=== PATIENT | male | born 2000 | race Hispanic/Latino ===

== ENCOUNTER 2021-01-30 18:30 | Emergency (ER) | payer SELFPAY ==
--- NOTE | 2021-01-30 20:02 | EDPHYS ---
Physician Documentation [facility] Name: Ede Bey Age: 20 yrs Sex: Male : 2000 Arrival Date: 01/30/2021 Time: 18:34 Bed 12 Private MD: ED Physician Sanjiv Gonsalez HPI: 01/30 19:57 This 20 yrs old Male presents to ER via Ambulatory with complaints of Arm sp3 Injury. 19:57 20-year-old male with no significant past medical history presents with left elbow pain sp3 secondary to a blunt injury he sustained yesterday where he ran into a cabinet and then subsequently fell on the ground. Patient complains of predominantly left distal elbow pain with no numbness tingling distally with normal pulse and sensation in his hand. Patient "tried to walk it off" yesterday but since the pain continued today he presents to the ED. No other secondary injuries noted at this time.. Historical: - Allergies: 19:04 No Known Allergies; aa5 - PMHx: 19:04 None; aa5 - PSHx: 19:04 None; aa5 - Immunization history:: Client reports having NOT received the Covid vaccine. - Social history:: Smoking status: Patient denies any tobacco usage or history of. ROS: 19:58 Constitutional: Negative for fever, chills, and weight loss, Eyes: Negative for injury, sp3 pain, redness, and discharge, ENT: Negative for injury, pain, and discharge, Neck: Negative for injury, pain, and swelling, Cardiovascular: Negative for chest pain, palpitations, and edema, Respiratory: Negative for shortness of breath, cough, wheezing, and pleuritic chest pain, Abdomen/GI: Negative for abdominal pain, nausea, vomiting, diarrhea, and constipation, Back: Negative for injury and pain, Skin: Negative for injury, rash, and discoloration, Neuro: Negative for headache, weakness, numbness, tingling, and seizure, Psych: Negative for depression, anxiety, suicide ideation, homicidal ideation, and hallucinations, Allergy/Immunology: Negative for hives, rash, and allergies, Endocrine: Negative for neck swelling, polydipsia, polyuria, polyphagia, and marked weight changes. 19:58 All other systems are negative. Exam: 19:58 Constitutional: This is a well developed, well nourished patient who is awake, alert, sp3 and in no acute distress. Head/Face: Normocephalic, atraumatic. Neck: Trachea midline, no thyromegaly or masses palpated, and no cervical lymphadenopathy. Supple, full range of motion without nuchal rigidity, or vertebral point tenderness. No Meningismus. Chest/axilla: Normal chest wall appearance and motion. Nontender with no deformity. No lesions are appreciated. Cardiovascular: Regular rate and rhythm with a normal S1 and S2. No gallops, murmurs, or rubs. Normal PMI, no JVD. No pulse deficits. Respiratory: Lungs have equal breath sounds bilaterally, clear to auscultation and percussion. No rales, rhonchi or wheezes noted. No increased work of breathing, no retractions or nasal flaring. Abdomen/GI: Soft, non-tender, with normal bowel sounds. No distension or tympany. No guarding or rebound. No evidence of tenderness throughout. Back: No spinal tenderness. No costovertebral tenderness. Full range of motion. Skin: Warm, dry with normal turgor. Normal color with no rashes, no lesions, and no evidence of cellulitis. Neuro: Awake and alert, GCS 15, oriented to person, place, time, and situation. Cranial nerves II-XII grossly intact. Motor strength 5/5 in all extremities. Sensory grossly intact. Cerebellar exam normal. Normal gait. Psych: Awake, alert, with orientation to person, place and time. Behavior, mood, and affect are within normal limits. 19:58 Musculoskeletal/extremity: Small effusion to the elbow with limited range of motion secondary to pain. Pronation and supination are also limited secondary to pain. Wrist as a normal exam. Radial pulses normal. There is no pain in the anatomical snuffbox and capillary refill is normal.. Vital Signs: 19:02 BP 104 / 82; Pulse 76; Resp 18 S; Temp 99.0(TE); Pulse Ox 100% on R/A; Weight 104.33 kg aa5 (R); Height 6 ft. 0 in. (182.88 cm) (R); 19:46 BP 128 / 79; Pulse 76; Resp 16; Temp 98.5(O); Pulse Ox 100% on R/A; Pain 4/10; fu 19:02 Body Mass Index 31.19 (104.33 kg, 182.88 cm) aa5 MDM: 19:47 Patient medically screened. sp3 19:59 Data reviewed: vital signs, nurses notes. ED course: X-ray demonstrates elbow effusion sp3 consistent with radial head fracture with anterior sail sign and posterior fat pad noted on x-ray. Will place patient in a splint and a sling and have him follow-up with orthopedics for definitive immobilization. Discharged on diclofenac p.o. as needed as needed for pain. 01/30 19:04 Order name: Elbow Left 3 View XRAY aa5 01/30 19:57 Order name: Splint - Elbow; Complete Time: 20:36 sp3 01/30 19:57 Order name: Sling; Complete Time: 20:36 sp3 Administered Medications: No medications were administered Disposition Summary: 01/30/21 20:01 Discharge Ordered Location: Home sp3 Condition: Stable sp3 Diagnosis - Nondisplaced fracture of head of left radius, initial encounter for closed fracture sp3 Followup: sp3 - With: Luke Murphy MD - When: Upon discharge from the Emergency Department - Reason: Continuance of care Discharge Instructions: - Discharge Summary Sheet sp3 - Radial Head Fracture sp3 - Anterior and Posterior Colporrhaphy and Sling Procedure sp3 Forms: - Medication Reconciliation Form sp3 - Work release form fu - Thank You Letter sp3 - Antibiotic Education sp3 - Prescription Opioid Use sp3 Prescriptions: - Diclofenac Sodium 75 mg Oral Tablet Sustained Release - take 1 tablet by ORAL route 2 times per day; 30 tablet; Refills: 0, Product sp3 Selection Permitted Signatures: Dispatcher [employer] Susanna Coulter RN RN aa5 Sanjiv Gonsalez MD MD sp3 Corrections: (The following items were deleted from the chart) 20: 19:37 Elbow Left 3 View+RAD.RAD.BRZ ordered. EDMS QUINN
--- NOTE | 2021-01-30 20:02 | ER ---
Nurse's Notes [facility] Name: Ede Bey Age: 20 yrs Sex: Male : 2000 Arrival Date: 01/30/2021 Time: 18:34 Bed 12 Private MD: Diagnosis: Nondisplaced fracture of head of left radius, initial encounter for closed fracture Presentation: 01/30 19:02 Chief complaint: Patient states: tripped and fell onto left arm last night. Pt c/o pain aa5 to left elbow. Coronavirus screen: At this time, the client does not indicate any symptoms associated with coronavirus-19. Ebola Screen: No symptoms or risks identified at this time. Initial Sepsis Screen: Does the patient meet any 2 criteria? No. Patient's initial sepsis screen is negative. Does the patient have a suspected source of infection? No. Patient's initial sepsis screen is negative. Risk Assessment: Do you want to hurt yourself or someone else? Patient reports no desire to harm self or others. Onset of symptoms was January 2021. 19:02 Acuity: JOSIE 4 aa5 19:02 Method Of Arrival: Ambulatory aa5 Historical: - Allergies: 19:04 No Known Allergies; aa5 - PMHx: 19:04 None; aa5 - PSHx: 19:04 None; aa5 - Immunization history:: Client reports having NOT received the Covid vaccine. - Social history:: Smoking status: Patient denies any tobacco usage or history of. Screenin:39 Abuse screen: Denies threats or abuse. Nutritional screening: No deficits noted. fu Tuberculosis screening: No symptoms or risk factors identified. Fall Risk None identified. Assessment: 19:36 General: Appears in no apparent distress. Behavior is calm, cooperative, appropriate fu for age, Denies fever, feeling ill, fatigue, chills. Pain: Complains of pain in left arm Pain does not radiate. Pain currently is 4 out of 10 on a pain scale. Pain began 1 day ago. Aggravated by movement. Neuro: Level of Consciousness is awake, alert, obeys commands, Oriented to person, place, time, situation, [employer] Person are weak on left Gait is steady, Speech is normal, Facial symmetry appears normal. Cardiovascular: No deficits noted. Respiratory: No deficits noted. GI: No deficits noted. : No deficits noted. Musculoskeletal: Range of motion: limited in left arm Reports pain in left arm Pain is 4 out of 10 on a pain scale. 20:29 Reassessment: Patient and/or family updated on plan of care and expected duration. Pain fu level reassessed. Patient is alert, oriented x 3, equal unlabored respirations, skin warm/dry/pink. Vital Signs: 19:02 BP 104 / 82; Pulse 76; Resp 18 S; Temp 99.0(TE); Pulse Ox 100% on R/A; Weight 104.33 kg aa5 (R); Height 6 ft. 0 in. (182.88 cm) (R); 19:46 BP 128 / 79; Pulse 76; Resp 16; Temp 98.5(O); Pulse Ox 100% on R/A; Pain 4/10; fu 19:02 Body Mass Index 31.19 (104.33 kg, 182.88 cm) aa5 ED Course: 18:34 Patient arrived in ED. ds1 19:01 Arm band placed on. aa5 19:03 Triage completed. aa5 19:33 Sanjiv Gonsalez MD is Attending Physician. sp3 19:36 Franky Osborne, WINSOME is Primary Nurse. fu 19:39 Patient has correct armband on for positive identification. Call light in reach. Pulse fu ox on. NIBP on. 20:00 Luke Murphy MD is Referral Physician. sp3 20:05 Elbow Left 3 View XRAY In Process Unspecified. EDMS 20:36 Orthoglass splint: Sugar tong splint applied on left arm. Sling applied to left arm. ds4 20:37 No provider procedures requiring assistance completed. Patient did not have IV access fu during this emergency room visit. Administered Medications: No medications were administered Outcome: 20:01 Discharge ordered by . sp3 20:37 Discharged to home ambulatory. fu 20:37 Condition: good 20:37 Discharge instructions given to patient, Instructed on discharge instructions, follow up and referral plans. Demonstrated understanding of instructions, follow-up care, Prescriptions given X 1. 20:38 Patient left the ED. fu Signatures: Dispatcher [employer] EDME Mcgrath, Terri ds1 Susanna Carter RN RN aa5 Patrick Dejesus ds4 Franky Osborne, WINSOME SCHUMACHER fu Gonsalez, Setul, MD MD sp3
[2021-01-30 21:22] VITALS: O2SAT 100
[2021-01-30 21:23] VITALS: BP 128/79; TEMP 98.5
--- NOTE | 2021-01-30 21:36 | RAD REPORT ---
EXAM DESCRIPTION: RAD - Elbow Left 3 View - 01/30/2021 8:04 pm CLINICAL HISTORY: PAINno trauma history detailed COMPARISON: None. FINDINGS: Left radial head fracture is present. Fracture line traverses the articular surface. No me asurable depression or distraction of the fracture. Elevated posterior fat pad is seen. Ulna and asha cullen are intact. There is no dislocation or periosteal reaction noted. No foreign body or other soft tissue abnormality. IMPRESSION: Left radial head fracture as detailed.
== END 2021-01-30 20:38 | disposition home or self-care (01) ==
LOC: ER 18:30
PROC: 2W39X1Z Immobilization of Left Upper Extremity using Splint (ICD-10-PCS; principal; 2021-01-30)
DX: S52.125A Nondisplaced fracture of head of left radius, initial encounter for closed fracture (principal); W01.0XXA Fall on same level from slipping, tripping and stumbling without subsequent striking against object, initial encounter; Y92.9 Unspecified place or not applicable
CPT/HCPCS: 99284

== ENCOUNTER 2024-11-10 00:51 | Emergency (ER) | payer SELFPAY ==
--- NOTE | 2024-11-10 01:02 | EDPHYS ---
Physician Documentation [facility] Name: Ede Bey Age: 23 yrs Sex: Male : 2000 Arrival Date: 11/10/2024 Time: 00:51 Bed IW4 Private MD: ED Physician Brenden Durbin HPI: 11/10 00:59 This 23 yrs old Male presents to ER via Unassigned with complaints of kb Toothache, Jaw Pain, Facial Swelling. 00:59 Pt is a 23 year old male who presents for toothache that started yesterday. States the kb pain was managed with tylenol, but has gotten worse recently. Denies fever. . Historical: - Allergies: :23 No Known Allergies; br2 - PMHx: :23 None; br2 - PSHx: :23 None; br2 - Immunization history:: Adult Immunizations up to date. - Infectious Disease History:: Denies. - Social history:: Smoking status: Patient denies any tobacco usage or history of. Patient/guardian denies using alcohol, street drugs. ROS: 00:59 Constitutional: As per HPI kb Exam: 00:59 Constitutional: This is a well developed, well nourished patient who is awake, alert, kb and in no acute distress. Head/Face: Normocephalic, atraumatic. ENT: Moist Mucous membranes Cardiovascular: Regular rate Respiratory: Respirations even and unlabored. No increased work of breathing. Talking in full sentences Skin: Warm, dry with normal turgor. Normal color. MS/ Extremity: Pulses equal, no cyanosis. Neurovascular intact. Full, normal range of motion. Neuro: Awake and alert, GCS 15, oriented to person, place, time, and situation. Vital Signs: 01:20 BP 147 / 106; Pulse 78; Resp 18; Temp 97.1; Pulse Ox 100% ; Weight 108.86 kg; Height 5 br2 ft. 10 in. ; Pain 7/10; 01:20 Body Mass Index 34.44 (108.86 kg, 177.8 cm) br2 01:20 Pain Scale: Adult br2 MDM: 00:58 Medical Screening Exam initiated kb 01:00 Differential diagnosis: dental caries, gingivitis, dental abscess, pericoronitis, kb aphthous ulcers. Data reviewed: vital signs, nurses notes. Counseling: I had a detailed discussion with the patient and/or guardian regarding the historical points, exam findings, and any diagnostic results supporting the discharge/admit diagnosis, the need for outpatient follow up, a dentist, to return to the emergency department if symptoms worsen or persist or if there are any questions or concerns that arise at home. Administered Medications: 01:32 Drug: Amoxicillin-Clavulanate PO 875 mg PO once Route: PO; br2 01:34 Follow up: Response: Medication administered at discharge. br2 01:32 Drug: Hydrocodone-Acetaminophen PO (7.5 mg-325 mg) 1 tabs PO once Route: PO; br2 01:34 Follow up: Response: Medication administered at discharge. br2 Disposition: 07:04 Co-signature as Attending Physician, Brenden Durbin MD I agree with the assessment sp4 and plan of care. I reviewed the patient's care provided by the Advanced Practice Provider and agree with the diagnosis and treatment plan. Disposition Summary: 11/10/24 01:01 Discharge Ordered Notes: Location: Home kb Condition: Stable kb Diagnosis - Dental pain kb Followup: kb - With: Emergency Department - When: As needed - Reason: Worsening of condition Followup: kb - With: Private Physician - When: 2 - 3 days - Reason: Recheck today's complaints, Continuance of care, Re-evaluation by your physician Discharge Instructions: - Discharge Summary Sheet kb - Dental Pain, [id number] kb - Dental Abscess, [id number] kb Forms: - Medication Reconciliation Form kb - Antibiotic Education kb - Prescription Opioid Use kb - Patient Portal Instructions kb - Leadership Thank You Letter kb Prescriptions: - Augmentin 875-125 mg Oral Tablet - take 1 tablet ORAL route every 12 hours for 10 days; 20 tablet; Refills: 0, kb Product Selection Permitted - Diclofenac Sodium 75 mg Oral tablet, delayed release (enteric coated) - take 1 tablet ORAL route 2 times per day As needed; 30 tablet; Refills: 0, kb Product Selection Permitted Signatures: Lelia Hassan, Brenden Cunningham MD MD sp4 Laurence Mc, RN RN br2
[2024-11-10] MEDS ORDERED: AMOX/K CLAV 875 MG TAB ONE (01:30)
[2024-11-10] MEDS ORDERED: HYDROCODONE/APAP 7.5/325 MG TAB ONE (01:31)
--- NOTE | 2024-11-10 01:35 | ER ---
Nurse's Notes [facility] Name: Ede Bey Age: 23 yrs Sex: Male : 2000 Arrival Date: 11/10/2024 Time: 00:51 Bed IW4 Private MD: Diagnosis: Dental pain Presentation: 11/10 01:20 Chief complaint: Patient states: right lower toothache since yesterday. Coronavirus br2 screen: Client denies travel out of the [place] in the last 14 days. Ebola Screen: Patient denies exposure to infectious person. Initial Sepsis Screen: Does the patient meet any 2 criteria? No. Patient's initial sepsis screen is negative. Does the patient have a suspected source of infection? No. Patient's initial sepsis screen is negative. Risk Assessment: Do you want to hurt yourself or someone else? Patient reports no desire to harm self or others. Onset of symptoms was November 09, 2024. 01:20 Method Of Arrival: Ambulatory br2 01:20 Acuity: JOSIE 5 br2 Triage Assessment: 01:23 General: Appears uncomfortable, Behavior is calm, cooperative. Pain: Complains of pain br2 in right jaw Pain currently is 7 out of 10 on a pain scale. Historical: - Allergies: 01:23 No Known Allergies; br2 - PMHx: 01:23 None; br2 - PSHx: 01:23 None; br2 - Immunization history:: Adult Immunizations up to date. - Infectious Disease History:: Denies. - Social history:: Smoking status: Patient denies any tobacco usage or history of. Patient/guardian denies using alcohol, street drugs. Assessment: 01:32 Reassessment: see triage assessment. EENT: Reports pain in right jaw. br2 Vital Signs: 01:20 BP 147 / 106; Pulse 78; Resp 18; Temp 97.1; Pulse Ox 100% ; Weight 108.86 kg; Height 5 br2 ft. 10 in. ; Pain 7/10; 01:20 Body Mass Index 34.44 (108.86 kg, 177.8 cm) br2 01:20 Pain Scale: Adult br2 ED Course: 00:56 Patient arrived in ED. im 00:58 Lelia Hassan FNP-C is PHCP. kb 00:58 Brenden Durbin MD is Attending Physician. kb 01:23 Triage completed. br2 01:23 Arm band placed on left wrist. br2 Administered Medications: 01:32 Drug: Amoxicillin-Clavulanate PO 875 mg PO once Route: PO; br2 01:34 Follow up: Response: Medication administered at discharge. br2 01:32 Drug: Hydrocodone-Acetaminophen PO (7.5 mg-325 mg) 1 tabs PO once Route: PO; br2 01:34 Follow up: Response: Medication administered at discharge. br2 Outcome: 01:01 Discharge ordered by . kb 01:34 Discharged to home ambulatory, br2 01:34 Condition: stable 01:34 Discharge instructions given to patient, Instructed on discharge instructions, follow up and referral plans. Demonstrated understanding of instructions, follow-up care, medications, Prescriptions given X 2, 01:35 Patient left the ED. br2 Signatures: Lelia Hassan, DIETARY ASSISTANT-C DIETARY ASSISTANT-CkJacquie Winkler Belinda, RN RN br2
[2024-11-10 05:04] VITALS: BP 147/106; TEMP 97.1; O2SAT 100
== END 2024-11-10 01:35 | disposition home or self-care (01) ==
LOC: ER 00:51
DX: K08.89 Other specified disorders of teeth and supporting structures (principal)
CPT/HCPCS: 99283